=== PATIENT | female | born 1955 | race Two or more races ===

== ENCOUNTER → 2016-06-11 | Outpatient (CLI) | payer OTHER ==
[2013-11-28 18:05] VITALS: BP 124/59
[~2016-06-11] MED LIST: CETI10TA22 PO; HYDR-2666 PO; IBUP200T77 PO; LISI1TAB7 PO; MECL12.52 PO; SIMV40TA3 PO
--- NOTE | 2016-06-11 08:39 | RAD ---
Indication renal and/or ureteral calculi. Right flank pain and hematuria for one week. Axial images were obtained through the abdomen and pelvis. The examination was tailored for the detection of renal and/or ureteral calculi. No IV or gastrointestinal contrast was administered. No prior imaging of the abdomen or pelvis is available. The lung bases are clear. There is a ventral abdominal wall hernia, in the midline, containing only fat measuring approximately 7 cm in greatest dimension and appearing uncomplicated. The liver and spleen appear unremarkable. The gallbladder appears grossly normal. No pancreatic pathology is seen. The adrenal glands appear normal. The kidneys appear unremarkable. There are no renal calculi on either side. There is no hydronephrosis hydroureter or definite calcification seen along the course of either ureter. In the left pelvis, image 191 series 2 there is a calcific density but this is probably outside the ureter. Several calcifications are noted in the pelvis compatible with phleboliths. A mass inflammatory process or acute finding in the abdomen or pelvis is not seen. There are degenerative changes in the lumbar spine likely with an associated component of spinal stenosis. IMPRESSION: No acute finding seen in the abdomen or pelvis. No renal calculi hydronephrosis or definite stone is seen in either ureter. Ventral hernia, containing only fat and appearing uncomplicated Chronic musculoskeletal changes PQRS Compliance Statement: One or more of the following individualized dose reduction techniques were utilized for this examination: 1. Automated exposure control 2. Adjustment of the mA and/or kV according to patient size 3. Use of iterative reconstruction technique
== END | disposition home or self-care (01) ==
LOC: CT 07:27
PROVIDERS: ATTEND Nurse Practitioner
DX: K43.9 Ventral hernia without obstruction or gangrene (principal)
CPT/HCPCS: 74176

== ENCOUNTER → 2016-08-21 | Outpatient (CLI) | payer OTHER ==
[2013-11-28 18:05] VITALS: BP 124/59
--- NOTE | 2016-08-21 14:29 | RAD ---
DATE: 08/21/2016 EXAM: DIGITAL SCREEN BILAT W/CAD HISTORY: Routine screening COMPARISON: 07/05/2015 This study was interpreted with the benefit of Computerized Aided Detection (CAD). FINDINGS: There are scattered fibroglandular densities in the breasts. No new or enlarging breast densities are seen. Benign type calcifications are present. No suspicious microcalcifications have developed. IMPRESSION: Stable mammograms without evidence of malignancy. BI-RADS CATEGORY: 2 BENIGN FINDING(S) RECOMMENDED FOLLOW-UP: 12M 12 MONTH FOLLOW-UP PQRS compliance statement: Patient information was entered into a reminder system with a target due date for the next mammogram. Mammography is a sensitive method for finding small breast cancers, but it does not detect them all and is not a substitute for careful clinical examination. A negative mammogram does not negate a clinically suspicious finding and should not result in delay in biopsying a clinically suspicious abnormality. "Our facility is accredited by the [employer] Mammography [employer]."
== END | disposition home or self-care (01) ==
LOC: MAMMO 13:40
PROVIDERS: ATTEND Family Medicine
DX: Z12.31 Encounter for screening mammogram for malignant neoplasm of breast (principal)
CPT/HCPCS: G0202; 77067

== ENCOUNTER → 2018-06-07 | Outpatient (CLI) | payer OTHER ==
[2013-11-28 18:05] VITALS: BP 124/59
[~2018-06-07] MED LIST changes: -HYDR-2666 PO; +HYDR-2761 PO
[2018-06-07 15:02] LABS: BILIRUBIN,URINE NEGATIVE (NEG); CLARITY,URINE CLEAR; COLOR,URINE YELLOW; NITRITE,URINE NEGATIVE (NEG); PROTEIN,URINE NEGATIVE (NEG-TRACE); UROBILINOGEN,URINE 0.2 mg/dL (0.2 mg/dL)
[2018-06-07 15:35] LABS: BACTERIA,URINE FEW /HPF (0-FEW); SQUAMOUS EPITHELIAL CELL,UR MOD /LPF
[2018-06-07 15:47] LABS: ALBUMIN 3.9 g/dL (3.4-5.0); CALCIUM 9.3 mg/dL (8.5-10.1); CREATININE 0.7 mg/dL (0.6-1.0); GFR 84.5; POTASSIUM 3.6 mmol/L (3.5-5.1); TOTAL BILIRUBIN 0.6 mg/dL (0.2-1.0)
[2018-06-07 15:48] LABS: CHOLESTEROL/HDL RATIO 4.6
[2018-06-08 00:13] LABS: HEMOGLOBIN A1C 6.6 % (4.8-5.6)
== END | disposition home or self-care (01) ==
LOC: LAB 14:13
PROVIDERS: ATTEND Nurse Practitioner
DX: E55.9 Vitamin D deficiency, unspecified (principal); E78.49 Other hyperlipidemia; R30.0 Dysuria; R73.03 Prediabetes
CPT/HCPCS: 36415; 80053; 80061; 81001; 82306; 83036; 84443; 87086

== ENCOUNTER → 2018-06-17 | Outpatient (CLI) | payer OTHER ==
[2013-11-28 18:05] VITALS: BP 124/59
--- NOTE | 2018-06-17 12:06 | RAD ---
DATE: 06/17/2018 EXAM: MAMMO KIERAN SCREENING BILATERAL HISTORY: Routine screening COMPARISON: 08/21/2016 This study was interpreted with the benefit of Computerized Aided Detection (CAD). Breast Density: SCATTERED The breast parenchyma shows scattered fibroglandular densities. Breast parenchyma level B. FINDINGS: 2-D and 3-D tomosynthesis imaging was performed in CC and MLO projections. No new or enlarging breast densities are seen. Scattered benign type calcifications are present. No suspicious microcalcifications have developed. IMPRESSION: Stable mammograms without evidence of malignancy. BI-RADS CATEGORY: 2 BENIGN FINDING(S) RECOMMENDED FOLLOW-UP: 12M 12 MONTH FOLLOW-UP PQRS compliance statement: Patient information was entered into a reminder system with a target due date for the next mammogram. Mammography is a sensitive method for finding small breast cancers, but it does not detect them all and is not a substitute for careful clinical examination. A negative mammogram does not negate a clinically suspicious finding and should not result in delay in biopsying a clinically suspicious abnormality. "Our facility is accredited by the [employer] Mammography Program."
== END | disposition home or self-care (01) ==
LOC: MAMMO 09:51
PROVIDERS: ATTEND Family Medicine
DX: Z12.31 Encounter for screening mammogram for malignant neoplasm of breast (principal)
CPT/HCPCS: 77063; 77067

== ENCOUNTER 2018-10-05 16:14 | Inpatient (IN) | payer OTHER ==
[2018-10-05] VITALS (10 sets, daily range): BP systolic 128–163; BP diastolic 58–84
[~2018-10-05] VITALS: Ht 154.9 cm; Wt 112.0 kg
--- NOTE | 2018-10-05 16:48 | PHYS DOC ---
Past Medical History Past Medical History: Hypertension Alcohol Use: None Adult General Chief Complaint Chief Complaint: HYPERGLYCEMIA HPI HPI Patient is a 63-year-old female who presents to the emergency department for evaluation. She states that she just hasn't felt well for the past several days, she has been having polyuria, as well as generalized fatigue, dizziness, described as a lightheadedness. She does have a history of vertigo in the past, states she has had a few episodes of vertigo over the past few days, but more recently her dizziness has been lightheadedness. She denies any numbness or focal weakness but does feel generally weak. She does not have history of diabetes, but has been told that she is "prediabetic", but she does not take any medication for this. She has not had any fevers or chills, nausea, vomiting, or diarrhea. She denies any headache, new vision changes, chest pain, or shortness of breath. There are no alleviating or exacerbating factors to her symptoms otherwise. The patient states she checked her blood sugar prior to coming to the emergency department and her blood sugar was 350. Blood sugar in the emergency department reads high. Review of Systems Review of Systems Constitutional: Denies fever or chills [] Eyes: Denies change in visual acuity, redness, or eye pain [] HENT: Denies nasal congestion or sore throat [] Respiratory: Denies cough or shortness of breath [] Cardiovascular: The patient denies any shortness of breath, chest pain, palpitations, or orthopnea [] GI: Denies abdominal pain, nausea, vomiting, bloody stools or diarrhea [] : Denies hematuria . Does admit to some mild dysuria.[] Musculoskeletal: Denies back pain or joint pain [] Integument: Denies rash or skin lesions [] Neurologic: Denies headache, focal weakness or sensory changes. Reports generalized weakness.[] Endocrine: Admits to polyuria or polydipsia [] All other systems were reviewed and found to be within normal limits, except as documented in this note. Current Medications Current Medications Current Medications Medications (Trade) Dose Ordered Sig/Swapnil Start Time Stop Time Status Last Admin Dose Admin Dextrose (Dextrose 50%-Water Syringe) 12.5 gm PRN Q15MIN PRN 10/05/18 18:00 Insulin Human Regular 150 ml @ 0 mls/hr 1X ONCE 10/05/18 18:15 10/05/18 18:16 Insulin Human Regular (HumuLIN R VIAL) 5 unit 1X ONCE 10/05/18 17:00 10/05/18 17:01 DC 10/05/18 17:00 5 UNIT Insulin Human Regular 150 unit/ Sodium Chloride 151.5 ml @ 0 mls/hr CONT PRN 10/05/18 18:00 UNV Sodium Chloride 1,000 ml @ 1,000 mls/hr 1X ONCE 10/05/18 17:00 10/05/18 17:59 DC 10/05/18 16:58 1,000 MLS/HR Allergies Allergies Allergies Coded Allergies Type Severity Reaction Last Updated Verified No Known Drug Allergies 11/28/13 No Physical Exam Physical Exam PHYSICAL EXAM: CONSTITUTIONAL: Well developed, well nourished HEAD: normocephalic, atraumatic EENT: PERRL, EOMI. Conjunctivae normal color, sclerae non-icteric; moist mucous membranes. NECK: Supple, non-tender; no meningismus. LUNGS: Lungs CTA, breathing even and unlabored. Normal air movement. HEART: Regular rate and rhythm, no murmur CHEST: No deformity; non-tender ABDOMEN: The abdomen is soft, and non-tender, no masses or bruits. EXTREM: Normal ROM; no deformity, no calf tenderness. Normal pulses palpable in all extremities. There is no pedal edema. SKIN: No rash; no diaphoresis NEURO: Alert; normal speech and cognition; CN's grossly intact; strength grossly intact without focal deficit. Thdrso-vgiu-twkyfh and heel rivero testing is normal. Visual mejia are intact by confrontation. There is generalized psychomotor slowing. BACK: No CVA TTP. Current Patient Data Vital Signs Vital Signs Date Time Temp Pulse Resp B/P (MAP) Pulse Ox O2 Delivery O2 Flow Rate FiO2 10/05/18 16:25 98.4 68 20 141/66 (91) 94 Room Air 98.4 Lab Values Laboratory Tests Test 10/05/18 16:37 White Blood Count 6.0 x10^3/uL (4.0-11.0) Red Blood Count 4.09 x10^6/uL (3.50-5.40) Hemoglobin 12.4 g/dL (12.0-15.5) Hematocrit 37.2 % (36.0-47.0) Mean Corpuscular Volume 91 fL (79-100) Mean Corpuscular Hemoglobin 30 pg (25-35) Mean Corpuscular Hemoglobin Concent 33 g/dL (31-37) Red Cell Distribution Width 13.1 % (11.5-14.5) Platelet Count 170 x10^3/uL (140-400) Neutrophils (%) (Auto) 67 % (31-73) Lymphocytes (%) (Auto) 24 % (24-48) Monocytes (%) (Auto) 7 % (0-9) Eosinophils (%) (Auto) 1 % (0-3) Basophils (%) (Auto) 1 % (0-3) Neutrophils # (Auto) 4.0 x10^3uL (1.8-7.7) Lymphocytes # (Auto) 1.4 x10^3/uL (1.0-4.8) Monocytes # (Auto) 0.4 x10^3/uL (0.0-1.1) Eosinophils # (Auto) 0.1 x10^3/uL (0.0-0.7) Basophils # (Auto) 0.1 x10^3/uL (0.0-0.2) Sodium Level 124 mmol/L (136-145) L Potassium Level 4.7 mmol/L (3.5-5.1) Chloride Level 83 mmol/L (98-107) L Carbon Dioxide Level 19 mmol/L (21-32) L Anion Gap 22 (6-14) H Blood Urea Nitrogen 52 mg/dL (7-20) H Creatinine 1.9 mg/dL (0.6-1.0) H Estimated GFR (Cockcroft-Gault) 26.7 BUN/Creatinine Ratio 27 (6-20) H Glucose Level 1123 mg/dL (70-99) *H Calcium Level 9.5 mg/dL (8.5-10.1) Magnesium Level 3.1 mg/dL (1.8-2.4) H Total Bilirubin 1.0 mg/dL (0.2-1.0) Aspartate Amino Transferase (AST) 53 U/L (15-37) H Alanine Aminotransferase (ALT) 63 U/L (14-59) H Alkaline Phosphatase 69 U/L (46-116) Creatine Kinase 204 U/L (26-192) H RB-Vgm-Y-Type Natriuretic Peptide 102 pg/mL (0-124) Total Protein 7.9 g/dL (6.4-8.2) Albumin 4.2 g/dL (3.4-5.0) Albumin/Globulin Ratio 1.1 (1.0-1.7) Thyroid Stimulating Hormone (TSH) 0.899 uIU/mL (0.358-3.74) Free Thyroxine 1.33 ng/dL (0.76-1.46) Acetone Level Sm pos (NEG) Laboratory Tests 10/05/18 16:37 Laboratory Tests 10/05/18 16:37 EKG EKG Normal sinus rhythm at a rate of 67 beats for minute, left axis deviation, normal intervals. There are no acute ischemic ST/T changes.[] Radiology/Procedures Radiology/Procedures [] Course & Med Decision Making Course & Med Decision Making Pertinent Labs and Imaging studies reviewed. (See chart for details) 6:05 PM:The patient's condition remains stable. I spoke with the hospitalist, who accepted the patient to the hospital for further evaluation and treatment. CRITICAL CARE TIME: [45] Minutes, excluding any procedures and care of other patients. Insulin drip will be started. Pt with features of Hyperosmolar state and possible mild DKA. VBG still currently pending. Dragon Disclaimer Dragon Disclaimer This electronic medical record was generated, in whole or in part, using a voice recognition dictation system. Departure Departure Impression: Primary Impression: Hyperglycemia Additional Impression: Renal insufficiency Disposition: ADMITTED INPATIENT Admitting Physician: MARC Condition: GUARDED Referrals: FLOR BLUNT MD (PCP) Problem Qualifiers STIVEN MINOR MD Oct 05, 2018 16:48
[2018-10-05 16:51] LABS: BASO # 0.1 x10^3/uL (0.0-0.2); BASO % 1 % (0-3); EOS # 0.1 x10^3/uL (0.0-0.7); EOS % 1 % (0-3); HEMATOCRIT 37.2 % (36.0-47.0); HEMOGLOBIN 12.4 g/dL (12.0-15.5); LYMPH # 1.4 x10^3/uL (1.0-4.8); LYMPH % 24 % (24-48); MEAN CORPUSCULAR HEMOGLOBIN 30 pg (25-35); MEAN CORPUSCULAR HGB CONC 33 g/dL (31-37); MEAN CORPUSCULAR VOLUME 91 fL (79-100); MONO # 0.4 x10^3/uL (0.0-1.1); MONO % 7 % (0-9); NEUT % 67 % (31-73); PLATELET COUNT 170 x10^3/uL (140-400); RED BLOOD COUNT 4.09 x10^6/uL (3.50-5.40); RED CELL DISTRIBUTION WIDTH 13.1 % (11.5-14.5)
[2018-10-05] MEDS ORDERED: INSULIN REGULAR 100 UNIT/ML 3ML VIAL. IV ONE (17:00)
[2018-10-05] MEDS ORDERED: IV NORMAL SALINE 1000ML BAG 1,000 ML IV ONE ×3 (17:00→19:00)
[2018-10-05] MEDS ORDERED: IV NORMAL SALINE 1000ML BAG 1,000 ML IV SCH (17:00)
[2018-10-05 17:14] LABS: CALCIUM 9.5 mg/dL (8.5-10.1); CREATININE 1.9 mg/dL (0.6-1.0); GFR 26.7; POTASSIUM 4.7 mmol/L (3.5-5.1)
[2018-10-05 17:17] LABS: ALBUMIN 4.2 g/dL (3.4-5.0); ALBUMIN/GLOBULIN RATIO 1.1 (1.0-1.7); MAGNESIUM 3.1 mg/dL (1.8-2.4); TOTAL PROTEIN 7.9 g/dL (6.4-8.2)
[2018-10-05 17:24] LABS: FREE T4 1.33 ng/dL (0.76-1.46); THYROID STIM HORMONE (TSH) 0.899 uIU/mL (0.358-3.74)
[2018-10-05] MEDS ORDERED: INSULIN REGULAR VIAL 150 UNIT in 0.9 % SODIUM CHLORIDE 150ML 150 ML IV PRN ×2 (18:00→19:00)
[2018-10-05] MEDS ORDERED: DEXTROSE 50% 25 GM / 50ML DISP.SYRIN. IV PRN (18:00)
[2018-10-05] MEDS ORDERED: INSULIN,REGULAR 150 UNIT DRIP 150 ML IV ONE (18:15)
[2018-10-05 18:22] LABS: ISTAT BE VENOUS -7 mmol/L (0-3); ISTAT HCO3 VEN 20 mmol/L (24-28); ISTAT PCO2 VEN 46 mmHg (41-51); ISTAT PH VEN 7.26 (7.32-7.42); ISTAT PO2 VEN 41 mmHg (20-40); ISTAT SAT O2 VEN 68 %; ISTAT TCO2 VEN 22 mmol/L (21-32)
[2018-10-05] MEDS: IV DEXTROSE 5 %-0.45 % NACL 1,000 ML IV SCH ×2 (18:58→22:58)
[2018-10-05] MEDS: IV 1/2 NORMAL SALINE 1,000 ML IV SCH ×2 (18:58→22:58)
[2018-10-05] MEDS: IV NORMAL SALINE 1000ML BAG 1,000 ML IV SCH ×2 (18:58→22:58)
[2018-10-05] MEDS ORDERED: POTASSIUM CHLORIDE 10MEQ 100 ML IV PRN ×3 (19:00)
[2018-10-05] MEDS: quiNINE 324 MG CAPSULE. PO SCH (20:15)
[2018-10-05] MEDS: cefTRIAXone IV Push 1 GM VIAL. IVP SCH (20:17)
[2018-10-05] MEDS: POTASSIUM CHLORIDE 10MEQ 100 ML IV SCH ×2 (21:13→21:14)
--- NOTE | 2018-10-05 22:40 | HP ---
ADMIT DATE: 10/05/2018 CHIEF COMPLAINT: Hyperglycemia. HISTORY OF PRESENT ILLNESS: The patient is a pleasant 63-year-old female who presented to the ER today with hyperglycemia. She has been feeling weak for several days. She has actually lost 30 pounds over the past several weeks. She has been having polyuria and polydipsia and generalized weakness rated at 9/10. While in the ER, we checked labs. She has a glucose greater than 1100. She also has an anion gap metabolic acidosis. We are going to admit the patient to the ICU on an insulin drip and fluids. PAST MEDICAL HISTORY: Hypertension. ALLERGIES: None. FAMILY HISTORY: Diabetes. SOCIAL HISTORY: She does not drink, smoke or take drugs. She works at [employer]. MEDICATIONS: Reviewed. Please refer to the MRAD. REVIEW OF SYSTEMS: GENERAL: She complains of weight loss, polydipsia and polyuria. SKIN: No bruising, hair changes or rashes. EYES: No blurred, double or loss of vision. NOSE AND THROAT: No history of nosebleeds, hoarseness or sore throat. HEART: No history of palpitations, chest pain or shortness of breath on exertion. LUNGS: Denies cough, hemoptysis, wheezing or shortness of breath. GASTROINTESTINAL: Denies changes in appetite, nausea, vomiting, diarrhea or constipation. GENITOURINARY: No history of frequency, urgency, hesitancy or nocturia. NEUROLOGIC: Denies history of numbness, tingling, tremor or weakness. PSYCHIATRIC: No history of panic, anxiety or depression. ENDOCRINE: No history of heat or cold intolerance, polyuria or polydipsia. EXTREMITIES: Denies muscle weakness, joint pain, pain on walking or stiffness. PHYSICAL EXAMINATION: VITAL SIGNS: Temperature afebrile, pulse 98, respirations 18 and blood pressure 141/66. GENERAL: She is alert, cooperative. Her family is present. HEART: Normal S1, S2. LUNGS: Clear. ABDOMEN: Soft. Positive bowel sounds. EXTREMITIES: With 1+ edema. SKIN: No rashes. ENDOCRINE: No thyromegaly. LYMPHATICS: No cervical lymph nodes. HEMATOPOIETIC: No bruising. PSYCHIATRIC: She is stable. LABORATORY DATA: Anion gap is 22. Glucose is 1123. Sodium 124 (I suspect this is pseudohyponatremia secondary to the elevated glucose). Acetone level is positive. ABG shows a pH of 7.26. ASSESSMENT AND PLAN: Diabetic ketoacidosis with metabolic acidosis. The patient is being admitted to the ICU on an insulin drip and IV fluids. DKA protocol. DVT prophylaxis. Home meds. Frequent labs. PROGNOSIS: Guarded. She will need aggressive diabetic education. I did talk to her a little bit about this. JEFFREY FORDE DO DR: JAYME/lev JOB#: [id number] / [id number]
[2018-10-05 23:35] LABS: CALCIUM 8.5 mg/dL (8.5-10.1); CREATININE 1.2 mg/dL (0.6-1.0); GFR 45.4; MAGNESIUM 2.4 mg/dL (1.8-2.4); POTASSIUM 3.5 mmol/L (3.5-5.1)
[2018-10-06] VITALS (15 sets, daily range): BP systolic 106–157; BP diastolic 53–84
[2018-10-06] MEDS ORDERED: DEXTROSE 50% 25 GM / 50ML DISP.SYRIN. IV PRN
--- NOTE | 2018-10-06 00:13 | NUR ---
Gap closed at 0000. Glucose Stabilizer DC'd orders per Dr Damon entered FS ac and hs SS insulin lantus 10 u at hs IVF D5NS at 125cc/hr
[2018-10-06] MEDS: IV DEXTROSE 5% - 0.9 % NACL 1,000 ML IV SCH ×3 (00:21→14:50)
[2018-10-06] MEDS ORDERED: POTASSIUM CHLORIDE 20 MEQ TABLET.ER. PO ONE ×2 (00:30→12:45)
--- NOTE | 2018-10-06 02:52 | EKG ---
[facility] [address] [place] [address] Test Date: 2018-10-05 Test Time: 16:56:44 Pat Name: SHAHRZAD REYNAGA Department: Room: Gender: F Hardware Assembler: : 1955 Requested By: STIVEN MINOR Order Number: [id number] Reading MD: Measurements Intervals Avenue Rate: 67 P: 36 MT: 152 QRS: -11 QRSD: 90 T: 12 QT: 442 QTc: 470 Interpretive Statements SINUS RHYTHM LEFTWARD AXIS NO SPECIFIC ECG ABNORMALITIES RI6.01 Unconfirmed report No previous ECG available for comparison
[2018-10-06] MEDS: quiNINE 324 MG CAPSULE. PO SCH ×3 (06:18→22:00)
[2018-10-06] MEDS: INSULIN LISPRO 300 UNITS/3 ML INSULN.PEN. SQ SCH ×6 (07:39→21:00)
[2018-10-06] MEDS ORDERED: INSULIN LISPRO 300 UNITS/3 ML INSULN.PEN. SQ SCH (08:00)
[2018-10-06] MEDS: ACETAMINOPHEN 325 MG TABLET. PO PRN (08:32)
[2018-10-06] MEDS: LACTOBACILLUS RHAMNOSUS GG 1 CAPSULE. PO SCH ×2 (08:32→21:47)
[2018-10-06] MEDS ORDERED: INSULIN LISPRO 300 UNITS/3 ML INSULN.PEN. SQ ONE ×4 (11:45→22:00)
--- NOTE | 2018-10-06 11:45 | NUR ---
Blood sugar is 419, notified Dr. Mullen, new order for 22 units Novolog total for lunch.
--- NOTE | 2018-10-06 12:47 | PDOC ---
PROGRESS NOTES Chief Complaint Chief Complaint acute Diabetic ketoacidosis Dm2 morbid obesity, BMI 45 acute vasomotor nephropathy, DKA History of Present Illness History of Present Illness transfer out of ICU cont insulin, larger doses needed may benefit from metformin if creatinine continues to improve, Vitals Vitals Vital Signs Date Time Temp Pulse Resp B/P (MAP) Pulse Ox O2 Delivery O2 Flow Rate FiO2 10/06/18 11:00 58 18 135/63 (87) 95 Room Air 10/06/18 08:00 98.7 98.7 Physical Exam General: Alert, Oriented X3, Cooperative, No acute distress Heart: Regular rate, Normal S1 Lungs: Clear Abdomen: No hepatosplenomegaly Extremities: No cyanosis, No edema Skin: No rashes, No significant lesion Labs LABS Laboratory Tests Test 10/05/18 16:37 10/05/18 18:17 10/05/18 20:15 10/05/18 23:15 White Blood Count 6.0 x10^3/uL (4.0-11.0) Red Blood Count 4.09 x10^6/uL (3.50-5.40) Hemoglobin 12.4 g/dL (12.0-15.5) Hematocrit 37.2 % (36.0-47.0) Mean Corpuscular Volume 91 fL (79-100) Mean Corpuscular Hemoglobin 30 pg (25-35) Mean Corpuscular Hemoglobin Concent 33 g/dL (31-37) Red Cell Distribution Width 13.1 % (11.5-14.5) Platelet Count 170 x10^3/uL (140-400) Neutrophils (%) (Auto) 67 % (31-73) Lymphocytes (%) (Auto) 24 % (24-48) Monocytes (%) (Auto) 7 % (0-9) Eosinophils (%) (Auto) 1 % (0-3) Basophils (%) (Auto) 1 % (0-3) Neutrophils # (Auto) 4.0 x10^3uL (1.8-7.7) Lymphocytes # (Auto) 1.4 x10^3/uL (1.0-4.8) Monocytes # (Auto) 0.4 x10^3/uL (0.0-1.1) Eosinophils # (Auto) 0.1 x10^3/uL (0.0-0.7) Basophils # (Auto) 0.1 x10^3/uL (0.0-0.2) Sodium Level 124 mmol/L (136-145) 138 mmol/L (136-145) Potassium Level 4.7 mmol/L (3.5-5.1) 3.5 mmol/L (3.5-5.1) Chloride Level 83 mmol/L (98-107) 103 mmol/L (98-107) Carbon Dioxide Level 19 mmol/L (21-32) 23 mmol/L (21-32) Anion Gap 22 (6-14) 12 (6-14) Blood Urea Nitrogen 52 mg/dL (7-20) 33 mg/dL (7-20) Creatinine 1.9 mg/dL (0.6-1.0) 1.2 mg/dL (0.6-1.0) Estimated GFR (Cockcroft-Gault) 26.7 45.4 BUN/Creatinine Ratio 27 (6-20) Glucose Level 1123 mg/dL (70-99) 541 mg/dL (70-99) 347 mg/dL (70-99) Calcium Level 9.5 mg/dL (8.5-10.1) 8.5 mg/dL (8.5-10.1) Magnesium Level 3.1 mg/dL (1.8-2.4) 2.4 mg/dL (1.8-2.4) Total Bilirubin 1.0 mg/dL (0.2-1.0) Aspartate Amino Transf (AST/SGOT) 53 U/L (15-37) Alanine Aminotransferase (ALT/SGPT) 63 U/L (14-59) Alkaline Phosphatase 69 U/L (46-116) 57 U/L (46-116) Creatine Kinase 204 U/L (26-192) FP-[id number]-Type Natriuretic Peptide 102 pg/mL (0-124) Total Protein 7.9 g/dL (6.4-8.2) Albumin 4.2 g/dL (3.4-5.0) Albumin/Globulin Ratio 1.1 (1.0-1.7) Thyroid Stimulating Hormone (TSH) 0.899 uIU/mL (0.358-3.74) Free Thyroxine 1.33 ng/dL (0.76-1.46) Acetone Level Sm pos (NEG) Bedside Venous pH 7.26 (7.32-7.42) Bedside Venous pCO2 46 mmHg (41-51) Bedside Venous pO2 41 mmHg (20-40) Venous Blood HCO3 20 mmol/L (24-28) POC Venous O2 Saturation (Cristian) 68 % Bedside FiO2 21.0 Test 10/06/18 07:26 10/06/18 11:38 Glucose (Fingerstick) 369 mg/dL (70-99) 419 mg/dL (70-99) Review of Systems Review of Systems weak, lethargic, but better Assessment and Plan Assessmemt and Plan Problems Medical Problems: (1) Hyperglycemia Status: Acute (2) Renal insufficiency Status: Acute Comment Review of Relevant I have reviewed the following items michelle (where applicable) has been applied. Labs Laboratory Tests Test 10/05/18 16:37 10/05/18 18:17 10/05/18 20:15 10/05/18 23:15 White Blood Count 6.0 x10^3/uL (4.0-11.0) Red Blood Count 4.09 x10^6/uL (3.50-5.40) Hemoglobin 12.4 g/dL (12.0-15.5) Hematocrit 37.2 % (36.0-47.0) Mean Corpuscular Volume 91 fL (79-100) Mean Corpuscular Hemoglobin 30 pg (25-35) Mean Corpuscular Hemoglobin Concent 33 g/dL (31-37) Red Cell Distribution Width 13.1 % (11.5-14.5) Platelet Count 170 x10^3/uL (140-400) Neutrophils (%) (Auto) 67 % (31-73) Lymphocytes (%) (Auto) 24 % (24-48) Monocytes (%) (Auto) 7 % (0-9) Eosinophils (%) (Auto) 1 % (0-3) Basophils (%) (Auto) 1 % (0-3) Neutrophils # (Auto) 4.0 x10^3uL (1.8-7.7) Lymphocytes # (Auto) 1.4 x10^3/uL (1.0-4.8) Monocytes # (Auto) 0.4 x10^3/uL (0.0-1.1) Eosinophils # (Auto) 0.1 x10^3/uL (0.0-0.7) Basophils # (Auto) 0.1 x10^3/uL (0.0-0.2) Sodium Level 124 mmol/L (136-145) 138 mmol/L (136-145) Potassium Level 4.7 mmol/L (3.5-5.1) 3.5 mmol/L (3.5-5.1) Chloride Level 83 mmol/L (98-107) 103 mmol/L (98-107) Carbon Dioxide Level 19 mmol/L (21-32) 23 mmol/L (21-32) Anion Gap 22 (6-14) 12 (6-14) Blood Urea Nitrogen 52 mg/dL (7-20) 33 mg/dL (7-20) Creatinine 1.9 mg/dL (0.6-1.0) 1.2 mg/dL (0.6-1.0) Estimated GFR (Cockcroft-Gault) 26.7 45.4 BUN/Creatinine Ratio 27 (6-20) Glucose Level 1123 mg/dL (70-99) 541 mg/dL (70-99) 347 mg/dL (70-99) Calcium Level 9.5 mg/dL (8.5-10.1) 8.5 mg/dL (8.5-10.1) Magnesium Level 3.1 mg/dL (1.8-2.4) 2.4 mg/dL (1.8-2.4) Total Bilirubin 1.0 mg/dL (0.2-1.0) Aspartate Amino Transf (AST/SGOT) 53 U/L (15-37) Alanine Aminotransferase (ALT/SGPT) 63 U/L (14-59) Alkaline Phosphatase 69 U/L (46-116) 57 U/L (46-116) Creatine Kinase 204 U/L (26-192) EB-Tih-Y-Type Natriuretic Peptide 102 pg/mL (0-124) Total Protein 7.9 g/dL (6.4-8.2) Albumin 4.2 g/dL (3.4-5.0) Albumin/Globulin Ratio 1.1 (1.0-1.7) Thyroid Stimulating Hormone (TSH) 0.899 uIU/mL (0.358-3.74) Free Thyroxine 1.33 ng/dL (0.76-1.46) Acetone Level Sm pos (NEG) Bedside Venous pH 7.26 (7.32-7.42) Bedside Venous pCO2 46 mmHg (41-51) Bedside Venous pO2 41 mmHg (20-40) Venous Blood HCO3 20 mmol/L (24-28) POC Venous O2 Saturation (Cristian) 68 % Bedside FiO2 21.0 Test 10/06/18 07:26 10/06/18 11:38 Glucose (Fingerstick) 369 mg/dL (70-99) 419 mg/dL (70-99) Laboratory Tests Test 10/05/18 16:37 10/05/18 18:17 10/05/18 20:15 10/05/18 23:15 White Blood Count 6.0 x10^3/uL (4.0-11.0) Red Blood Count 4.09 x10^6/uL (3.50-5.40) Hemoglobin 12.4 g/dL (12.0-15.5) Hematocrit 37.2 % (36.0-47.0) Mean Corpuscular Volume 91 fL (79-100) Mean Corpuscular Hemoglobin 30 pg (25-35) Mean Corpuscular Hemoglobin Concent 33 g/dL (31-37) Red Cell Distribution Width 13.1 % (11.5-14.5) Platelet Count 170 x10^3/uL (140-400) Neutrophils (%) (Auto) 67 % (31-73) Lymphocytes (%) (Auto) 24 % (24-48) Monocytes (%) (Auto) 7 % (0-9) Eosinophils (%) (Auto) 1 % (0-3) Basophils (%) (Auto) 1 % (0-3) Neutrophils # (Auto) 4.0 x10^3uL (1.8-7.7) Lymphocytes # (Auto) 1.4 x10^3/uL (1.0-4.8) Monocytes # (Auto) 0.4 x10^3/uL (0.0-1.1) Eosinophils # (Auto) 0.1 x10^3/uL (0.0-0.7) Basophils # (Auto) 0.1 x10^3/uL (0.0-0.2) Sodium Level 124 mmol/L (136-145) 138 mmol/L (136-145) Potassium Level 4.7 mmol/L (3.5-5.1) 3.5 mmol/L (3.5-5.1) Chloride Level 83 mmol/L (98-107) 103 mmol/L (98-107) Carbon Dioxide Level 19 mmol/L (21-32) 23 mmol/L (21-32) Anion Gap 22 (6-14) 12 (6-14) Blood Urea Nitrogen 52 mg/dL (7-20) 33 mg/dL (7-20) Creatinine 1.9 mg/dL (0.6-1.0) 1.2 mg/dL (0.6-1.0) Estimated GFR (Cockcroft-Gault) 26.7 45.4 BUN/Creatinine Ratio 27 (6-20) Glucose Level 1123 mg/dL (70-99) 541 mg/dL (70-99) 347 mg/dL (70-99) Calcium Level 9.5 mg/dL (8.5-10.1) 8.5 mg/dL (8.5-10.1) Magnesium Level 3.1 mg/dL (1.8-2.4) 2.4 mg/dL (1.8-2.4) Total Bilirubin 1.0 mg/dL (0.2-1.0) Aspartate Amino Transf (AST/SGOT) 53 U/L (15-37) Alanine Aminotransferase (ALT/SGPT) 63 U/L (14-59) Alkaline Phosphatase 69 U/L (46-116) 57 U/L (46-116) Creatine Kinase 204 U/L (26-192) OH-Thl-J-Type Natriuretic Peptide 102 pg/mL (0-124) Total Protein 7.9 g/dL (6.4-8.2) Albumin 4.2 g/dL (3.4-5.0) Albumin/Globulin Ratio 1.1 (1.0-1.7) Thyroid Stimulating Hormone (TSH) 0.899 uIU/mL (0.358-3.74) Free Thyroxine 1.33 ng/dL (0.76-1.46) Acetone Level Sm pos (NEG) Bedside Venous pH 7.26 (7.32-7.42) Bedside Venous pCO2 46 mmHg (41-51) Bedside Venous pO2 41 mmHg (20-40) Venous Blood HCO3 20 mmol/L (24-28) POC Venous O2 Saturation (Cristian) 68 % Bedside FiO2 21.0 Test 10/06/18 07:26 10/06/18 11:38 Glucose (Fingerstick) 369 mg/dL (70-99) 419 mg/dL (70-99) Medications Current Medications Sodium Chloride 1,000 ml @ 1,000 mls/hr Q1H IV Last administered on 10/05/18at 16:58; Start 10/05/18 at 17:00; Stop 10/05/18 at 17:59; Status DC Sodium Chloride 1,000 ml @ 1,000 mls/hr 1X ONCE IV Last administered on 10/05/18at 16:58; Start 10/05/18 at 17:00; Stop 10/05/18 at 17:59; Status DC Insulin Human Regular (HumuLIN R VIAL) 5 unit 1X ONCE IV Last administered on 10/05/18at 17:00; Start 10/05/18 at 17:00; Stop 10/05/18 at 17:01; Status DC Insulin Human Regular 150 unit/ Sodium Chloride 151.5 ml @ 0 mls/hr CONT PRN IV SEE I/O RECORD; Start 10/05/18 at 18:00; Status UNV Dextrose (Dextrose 50%-Water Syringe) 12.5 gm PRN Q15MIN PRN IV LOW BLOOD SUGAR; Start 10/05/18 at 18:00; Stop 10/06/18 at 00:06; Status DC Insulin Human Regular 150 ml @ 0 mls/hr 1X ONCE IV Last administered on 10/05/18at 18:32; Start 10/05/18 at 18:15; Stop 10/05/18 at 18:16; Status DC Sodium Chloride 1,000 ml @ 175 mls/hr 1X ONCE IV ; Start 10/05/18 at 18:15; Stop 10/05/18 at 23:57; Status DC Sodium Chloride 1,000 ml @ 250 mls/hr 1X ONCE IV Last administered on 10/05/18at 18:47; Start 10/05/18 at 19:00; Stop 10/05/18 at 22:59; Status DC Sodium Chloride 1,000 ml @ 250 mls/hr Q4H IV Last administered on 10/05/18at 22:58; Start 10/05/18 at 18:58; Stop 10/06/18 at 00:06; Status DC Sodium Chloride 1,000 ml @ 250 mls/hr Q4H IV ; Start 10/05/18 at 18:58; Stop 10/06/18 at 00:06; Status DC Dextrose/Sodium Chloride 1,000 ml @ 250 mls/hr Q4H IV ; Start 10/05/18 at 18:58; Stop 10/06/18 at 00:06; Status DC Insulin Human Regular 150 unit/ Sodium Chloride 151.5 ml @ 0 mls/hr CONT PRN PRN IV PER PROTOCOL; Start 10/05/18 at 19:00; Stop 10/06/18 at 00:06; Status DC Potassium Chloride/Water 100 ml @ 100 mls/hr PRN Q1HR PRN IV SEE COMMENTS Last administered on 10/05/18at 20:21; Start 10/05/18 at 19:00; Stop 10/06/18 at 00:06; Status DC Potassium Chloride/Water 100 ml @ 100 mls/hr PRN Q1HR PRN IV SEE COMMENTS; Start 10/05/18 at 19:00; Stop 10/06/18 at 00:06; Status DC Potassium Chloride/Water 100 ml @ 100 mls/hr PRN Q1HR PRN IV SEE COMMENTS; Start 10/05/18 at 19:00; Stop 10/06/18 at 00:06; Status DC Quinine Sulfate (Qualaquin) 324 mg Q8HRS PO Last administered on 10/06/18at 06:18; Start 10/05/18 at 22:00 Ceftriaxone Sodium (Rocephin) 1 gm Q24H IVP Last administered on 10/05/18at 20:17; Start 10/05/18 at 20:00 Potassium Chloride/Water 100 ml @ 100 mls/hr Q1H IV Last administered on 10/05/18at 21:14; Start 10/05/18 at 20:00; Stop 10/05/18 at 21:59; Status DC Insulin Glargine (Lantus) 10 units QHS SQ Last administered on 10/06/18at 00:23; Start 10/06/18 at 00:00; Stop 10/06/18 at 11:41; Status DC Insulin Human Lispro (HumaLOG) 0-5 UNITS QIDACHS SQ Last administered on 10/06/18at 07:39; Start 10/06/18 at 07:30 Dextrose (Dextrose 50%-Water Syringe) 12.5 gm PRN Q15MIN PRN IV SEE COMMENTS; Start 10/06/18 at 00:00 Insulin Human Lispro (HumaLOG) 10 units TIDWMEALS SQ Last administered on 10/06/18at 07:40; Start 10/06/18 at 08:00; Stop 10/06/18 at 11:41; Status DC Dextrose/Sodium Chloride 1,000 ml @ 125 mls/hr Q8H IV Last administered on 10/06/18at 07:42; Start 10/06/18 at 00:00 Potassium Chloride (Klor-Con) 40 meq 1X ONCE PO Last administered on 10/06/18at 00:24; Start 10/06/18 at 00:30; Stop 10/06/18 at 00:31; Status DC Lactobacillus Rhamnosus (Culturelle) 1 cap BID PO Last administered on 10/06/18at 08:32; Start 10/06/18 at 09:00 Acetaminophen (Tylenol) 650 mg PRN Q6HRS PRN PO PAIN Last administered on 10/06/18at 08:32; Start 10/06/18 at 08:30 Insulin Glargine (Lantus) 28 units QHS SQ ; Start 10/06/18 at 21:00 Insulin Human Lispro (HumaLOG) 17 units TIDWMEALS SQ ; Start 10/06/18 at 12:00 Insulin Human Lispro (HumaLOG) 22 units 1X ONCE SQ Last administered on 9at 11:53; Start 10/06/18 at 11:45; Stop 10/06/18 at 11:46; Status DC Active Scripts Active Reported Lisinopril-Hctz 20-25 Mg Tab (Lisinopril/Hydrochlorothiazide) 1 Each Tablet 1 Tab PO DAILY Vitals/I & O Vital Sign - Last 24 Hours 10/05/18 10/05/18 10/05/18 10/05/18 16:25 16:59 17:29 17:59 Temp 98.4 98.4 Pulse 68 66 66 64 Resp 20 22 33 30 B/P (MAP) 141/66 (91) 159/78 (105) 163/83 (109) 165/64 (97) Pulse Ox 94 93 95 96 O2 Delivery Room Air Room Air Room Air Room Air 10/05/18 10/05/18 10/05/18 10/05/18 18:29 19:00 19:15 19:30 Temp 98.2 98.2 Pulse 59 58 60 63 Resp 12 16 14 B/P (MAP) 174/83 (113) 132/65 (87) 138/70 (92) 140/68 (92) O2 Delivery Room Air Room Air Room Air 10/05/18 10/05/18 10/05/18 10/05/18 19:30 19:45 20:00 20:30 Pulse 62 72 70 Resp 14 12 16 B/P (MAP) 142/77 (98) 145/70 (95) 163/84 (110) Pulse Ox 99 98 100 O2 Delivery Room Air Room Air Room Air Room Air 10/05/18 10/05/18 10/05/18 10/05/18 21:00 22:00 23:00 23:59 Pulse 74 70 66 Resp 12 16 18 B/P (MAP) 128/78 (95) 137/66 (89) 128/58 (81) Pulse Ox 99 100 98 O2 Delivery Room Air Room Air Room Air Room Air 10/05/18 10/06/18 10/06/18 10/06/18 23:59 01:00 02:00 03:00 Temp 99.1 99.1 Pulse 88 68 68 57 Resp 18 20 18 16 B/P (MAP) 145/60 (88) 121/61 (81) 118/58 (78) 124/55 (78) Pulse Ox 98 100 100 98 O2 Delivery Room Air Room Air Room Air Room Air 10/06/18 10/06/18 10/06/18 10/06/18 04:00 04:00 05:00 06:00 Temp 98.6 98.6 Pulse 58 56 59 Resp 16 18 18 B/P (MAP) 106/53 (70) 140/55 (83) 133/67 (89) Pulse Ox 98 99 99 O2 Delivery Room Air Room Air Room Air Room Air 10/06/18 10/06/18 10/06/18 10/06/18 07:00 08:00 08:00 09:00 Temp 98.7 98.7 Pulse 56 56 58 Resp 18 18 18 B/P (MAP) 136/70 (92) 127/69 (88) 136/79 (98) Pulse Ox 96 96 95 O2 Delivery Room Air Room Air Room Air Room Air 10/06/18 10/06/18 10:00 11:00 Pulse 62 58 Resp 18 18 B/P (MAP) 153/84 (107) 135/63 (87) Pulse Ox 96 95 O2 Delivery Room Air Room Air Intake and Output 10/05/18 10/05/18 10/06/18 15:00 23:00 07:00 Intake Total 2300 ml 3320 ml Output Total 1500 ml 600 ml Balance 800 ml 2720 ml SAMINA VASQUEZ MD Oct 06, 2018 12:47
--- NOTE | 2018-10-06 15:21 | NUR ---
SS following for discharge planning. SS reviewed pt chart. Pt is from home and is currently on room air. No discharge needs noted at this time. SS will continue to follow for discharge planning.
--- NOTE | 2018-10-06 16:28 | NUR ---
Notified Dr. Mullen of blood sugar of 382, new order to give total of 30 units Novolog before dinner.
[2018-10-06] MEDS ORDERED: INSULIN GLARGINE 300 UNITS/3 ML INSULN.PEN. SQ SCH ×2 (21:00)
[2018-10-06] MEDS: cefTRIAXone IV Push 1 GM VIAL. IVP SCH (21:49)
[2018-10-07 03:00] VITALS: BP 132/52
[2018-10-07] MEDS: quiNINE 324 MG CAPSULE. PO SCH ×2 (06:00→14:05)
[2018-10-07 06:21] VITALS: BP 138/44
[2018-10-07] MEDS ORDERED: DEXTROSE 50% 25 GM / 50ML DISP.SYRIN. IV PRN (08:30)
[2018-10-07] MEDS: LISINOPRIL 20 MG TABLET PO SCH (08:57)
[2018-10-07] MEDS: LACTOBACILLUS RHAMNOSUS GG 1 CAPSULE. PO SCH ×2 (08:57→22:22)
[2018-10-07] MEDS: hydroCHLOROthiazide 25 MG TABLET PO SCH (08:58)
[2018-10-07] MEDS: INSULIN LISPRO 300 UNITS/3 ML INSULN.PEN. SQ SCH ×6 (09:05→17:48)
[2018-10-07 11:00] VITALS: BP 128/57
--- NOTE | 2018-10-07 11:37 | PDOC ---
PROGRESS NOTES Chief Complaint Chief Complaint s/ post [facility] with no coma polyuria, polydipsia- new Dm2 - new Dx morbid obesity, BMI 45 acute vasomotor nephropathy, from [facility] History of Present Illness History of Present Illness transfer out of ICU New dx of diabetes On hefty doses insulin and I still need to increase because blood sugars are 300s She came with a blood sugar 500s Plan: increase NovoLog from 17 to 20units 3 times a day Increase long-acting from 25 units to -35units daily at bedtime Check A1c Not ready to DC yet, wait for tomorrow On Rocephin but no urine sample Check a UA cont insulin, larger doses needed may benefit from metformin if creatinine continues to improve, - 1.2 today DM education Vitals Vitals Vital Signs Date Time Temp Pulse Resp B/P (MAP) Pulse Ox O2 Delivery O2 Flow Rate FiO2 10/07/18 11:00 98.0 74 16 128/57 (80) 96 Room Air 98.0 Physical Exam General: Alert, Oriented X3, Cooperative, No acute distress Heart: Regular rate, Normal S1 Lungs: Clear Abdomen: No hepatosplenomegaly Extremities: No cyanosis, No edema Skin: No rashes, No significant lesion Labs LABS Laboratory Tests Test 10/06/18 11:38 10/06/18 16:12 10/06/18 20:36 10/07/18 07:39 Glucose (Fingerstick) 419 mg/dL (70-99) 382 mg/dL (70-99) 385 mg/dL (70-99) 211 mg/dL (70-99) Review of Systems Review of Systems A 14 point ROS was completed with the following noted as positive: Other systems reviewed and negative. \CONSTITUTIONAL: No fever or chills EYES: No recent changes SKIN: No rash or itching CARDIOVASCULAR: No chest pain, syncope, palpitations, or edema RESPIRATORY: No SOB or cough GASTROINTESTINAL: No nausea, vomiting or abdominal pain NEUROLOGICAL: No headaches or weakness ENDOCRINE: No cold or heat intolerance GENITOURINARY: No urgency or frequency of urination MUSCULOSKELETAL: No back pain or joint pain LYMPHATICS: No enlarged lymph nodes PSYCHIATRIC: No anxiety or depression Assessment and Plan Assessmemt and Plan Problems Medical Problems: (1) Hyperglycemia Status: Acute (2) Renal insufficiency Status: Acute Comment Review of Relevant I have reviewed the following items michelle (where applicable) has been applied. Labs Laboratory Tests Test 10/05/18 16:37 10/05/18 18:17 10/05/18 19:00 10/05/18 20:15 White Blood Count 6.0 x10^3/uL (4.0-11.0) Red Blood Count 4.09 x10^6/uL (3.50-5.40) Hemoglobin 12.4 g/dL (12.0-15.5) Hematocrit 37.2 % (36.0-47.0) Mean Corpuscular Volume 91 fL (79-100) Mean Corpuscular Hemoglobin 30 pg (25-35) Mean Corpuscular Hemoglobin Concent 33 g/dL (31-37) Red Cell Distribution Width 13.1 % (11.5-14.5) Platelet Count 170 x10^3/uL (140-400) Neutrophils (%) (Auto) 67 % (31-73) Lymphocytes (%) (Auto) 24 % (24-48) Monocytes (%) (Auto) 7 % (0-9) Eosinophils (%) (Auto) 1 % (0-3) Basophils (%) (Auto) 1 % (0-3) Neutrophils # (Auto) 4.0 x10^3uL (1.8-7.7) Lymphocytes # (Auto) 1.4 x10^3/uL (1.0-4.8) Monocytes # (Auto) 0.4 x10^3/uL (0.0-1.1) Eosinophils # (Auto) 0.1 x10^3/uL (0.0-0.7) Basophils # (Auto) 0.1 x10^3/uL (0.0-0.2) Sodium Level 124 mmol/L (136-145) Potassium Level 4.7 mmol/L (3.5-5.1) Chloride Level 83 mmol/L (98-107) Carbon Dioxide Level 19 mmol/L (21-32) Anion Gap 22 (6-14) Blood Urea Nitrogen 52 mg/dL (7-20) Creatinine 1.9 mg/dL (0.6-1.0) Estimated GFR (Cockcroft-Gault) 26.7 BUN/Creatinine Ratio 27 (6-20) Glucose Level 1123 mg/dL (70-99) 541 mg/dL (70-99) Calcium Level 9.5 mg/dL (8.5-10.1) Magnesium Level 3.1 mg/dL (1.8-2.4) Total Bilirubin 1.0 mg/dL (0.2-1.0) Aspartate Amino Transf (AST/SGOT) 53 U/L (15-37) Alanine Aminotransferase (ALT/SGPT) 63 U/L (14-59) Alkaline Phosphatase 69 U/L (46-116) Creatine Kinase 204 U/L (26-192) MT-Tqc-H-Type Natriuretic Peptide 102 pg/mL (0-124) Total Protein 7.9 g/dL (6.4-8.2) Albumin 4.2 g/dL (3.4-5.0) Albumin/Globulin Ratio 1.1 (1.0-1.7) Thyroid Stimulating Hormone (TSH) 0.899 uIU/mL (0.358-3.74) Free Thyroxine 1.33 ng/dL (0.76-1.46) Acetone Level Sm pos (NEG) Bedside Venous pH 7.26 (7.32-7.42) Bedside Venous pCO2 46 mmHg (41-51) Bedside Venous pO2 41 mmHg (20-40) Venous Blood HCO3 20 mmol/L (24-28) POC Venous O2 Saturation (Cristian) 68 % Bedside FiO2 21.0 Nasal Screen MRSA (PCR) Negative (Negative) Test 10/05/18 23:15 10/06/18 07:26 10/06/18 11:38 10/06/18 16:12 Sodium Level 138 mmol/L (136-145) Potassium Level 3.5 mmol/L (3.5-5.1) Chloride Level 103 mmol/L (98-107) Carbon Dioxide Level 23 mmol/L (21-32) Anion Gap 12 (6-14) Blood Urea Nitrogen 33 mg/dL (7-20) Creatinine 1.2 mg/dL (0.6-1.0) Estimated GFR (Cockcroft-Gault) 45.4 Glucose Level 347 mg/dL (70-99) Calcium Level 8.5 mg/dL (8.5-10.1) Magnesium Level 2.4 mg/dL (1.8-2.4) Alkaline Phosphatase 57 U/L (46-116) Glucose (Fingerstick) 369 mg/dL (70-99) 419 mg/dL (70-99) 382 mg/dL (70-99) Test 10/06/18 20:36 10/07/18 07:39 Glucose (Fingerstick) 385 mg/dL (70-99) 211 mg/dL (70-99) Laboratory Tests Test 10/06/18 11:38 10/06/18 16:12 10/06/18 20:36 10/07/18 07:39 Glucose (Fingerstick) 419 mg/dL (70-99) 382 mg/dL (70-99) 385 mg/dL (70-99) 211 mg/dL (70-99) Medications Current Medications Sodium Chloride 1,000 ml @ 1,000 mls/hr Q1H IV Last administered on 10/05/18at 16:58; Start 10/05/18 at 17:00; Stop 10/05/18 at 17:59; Status DC Sodium Chloride 1,000 ml @ 1,000 mls/hr 1X ONCE IV Last administered on 10/05/18at 16:58; Start 10/05/18 at 17:00; Stop 10/05/18 at 17:59; Status DC Insulin Human Regular (HumuLIN R VIAL) 5 unit 1X ONCE IV Last administered on 10/05/18at 17:00; Start 10/05/18 at 17:00; Stop 10/05/18 at 17:01; Status DC Insulin Human Regular 150 unit/ Sodium Chloride 151.5 ml @ 0 mls/hr CONT PRN IV SEE I/O RECORD; Start 10/05/18 at 18:00; Status UNV Dextrose (Dextrose 50%-Water Syringe) 12.5 gm PRN Q15MIN PRN IV LOW BLOOD SUGAR; Start 10/05/18 at 18:00; Stop 10/06/18 at 00:06; Status DC Insulin Human Regular 150 ml @ 0 mls/hr 1X ONCE IV Last administered on 10/05/18at 18:32; Start 10/05/18 at 18:15; Stop 10/05/18 at 18:16; Status DC Sodium Chloride 1,000 ml @ 175 mls/hr 1X ONCE IV ; Start 10/05/18 at 18:15; St op 10/05/18 at 23:57; Status DC Sodium Chloride 1,000 ml @ 250 mls/hr 1X ONCE IV Last administered on 10/05/18at 18:47; Start 10/05/18 at 19:00; Stop 10/05/18 at 22:59; Status DC Sodium Chloride 1,000 ml @ 250 mls/hr Q4H IV Last administered on 10/05/18at 2 2:58; Start 10/05/18 at 18:58; Stop 10/06/18 at 00:06; Status DC Sodium Chloride 1,000 ml @ 250 mls/hr Q4H IV ; Start 10/05/18 at 18:58; Stop 10/06/18 at 00:06; Status DC Dextrose/Sodium Chloride 1,000 ml @ 250 mls/hr Q4H IV ; Start 10/05/18 at 18:58; Stop 10/06/18 at 00:06; Status DC Insulin Human Regular 150 unit/ Sodium Chloride 151.5 ml @ 0 mls/hr CONT PRN PRN IV PER PROTOCOL; Start 10/05/18 at 19:00; Stop 10/06/18 at 00:06; Status DC Potassium Chloride/Water 100 ml @ 100 mls/hr PRN Q1HR PRN IV SEE COMMENTS Last administered on 10/05/18at 20:21; Start 10/05/18 at 19:00; Stop 10/06/18 at 00:06; Status DC Potassium Chloride/Water 100 ml @ 100 mls/hr PRN Q1HR PRN IV SEE COMMENTS; Start 10/05/18 at 19:00; Stop 10/06/18 at 00:06; Status DC Potassium Chloride/Water 100 ml @ 100 mls/hr PRN Q1HR PRN IV SEE COMMENTS; Start 10/05/18 at 19:00; Stop 10/06/18 at 00:06; Status DC Quinine Sulfate (Qualaquin) 324 mg Q8HRS PO Last administered on 10/06/18at 13:25; Start 10/05/18 at 22:00 Ceftriaxone Sodium (Rocephin) 1 gm Q24H IVP Last administered on 10/06/18at 21:49; Start 10/05/18 at 20:00 Potassium Chloride/Water 100 ml @ 100 mls/hr Q1H IV Last administered on 10/05/18at 21:14; Start 10/05/18 at 20:00; Stop 10/05/18 at 21:59; Status DC Insulin Glargine (Lantus) 10 units QHS SQ Last administered on 10/06/18at 00:23; Start 10/06/18 at 00:00; Stop 10/06/18 at 11:41; Status DC Insulin Human Lispro (HumaLOG) 0-5 UNITS QIDACHS SQ Last administered on 10/06/18at 07:39; Start 10/06/18 at 07:30; Stop 10/07/18 at 08:27; Status DC Dextrose (Dextrose 50%-Water Syringe) 12.5 gm PRN Q15MIN PRN IV SEE COMMENTS; Start 10/06/18 at 00:00; Stop 10/07/18 at 08:29; Status DC Insulin Human Lispro (HumaLOG) 10 units TIDWMEALS SQ Last administered on 10/06/18at 07:40; Start 10/06/18 at 08:00; Stop 10/06/18 at 11:41; Status DC Dextrose/Sodium Chloride 1,000 ml @ 125 mls/hr Q8H IV Last administered on 10/06/18at 14:50; Start 10/06/18 at 00:00; Stop 10/06/18 at 16:55; Status DC Potassium Chloride (Klor-Con) 40 meq 1X ONCE PO Last administered on 10/06/18at 00:24; Start 10/06/18 at 00:30; Stop 10/06/18 at 00:31; Status DC Lactobacillus Rhamnosus (Culturelle) 1 cap BID PO Last administered on 10/07/18at 08:57; Start 10/06/18 at 09:00 Acetaminophen (Tylenol) 650 mg PRN Q6HRS PRN PO PAIN Last administered on 10/06/18at 08:32; Start 10/06/18 at 08:30 Insulin Glargine (Lantus) 28 units QHS SQ Last administered on 10/06/18at 22:04; Start 10/06/18 at 21:00; Stop 10/07/18 at 08:27; Status DC Insulin Human Lispro (HumaLOG) 17 units TIDWMEALS SQ ; Start 10/06/18 at 12:00; Stop 10/07/18 at 08:27; Status DC Insulin Human Lispro (HumaLOG) 22 units 1X ONCE SQ Last administered on 10/06/18at 11:53; Start 10/06/18 at 11:45; Stop 10/06/18 at 11:46; Status DC Potassium Chloride (Klor-Con) 40 meq 1X ONCE PO Last administered on 10/06/18at 12:50; Start 10/06/18 at 12:45; Stop 10/06/18 at 12:46; Status DC Insulin Human Lispro (HumaLOG) 10 units 1X ONCE SQ ; Start 10/06/18 at 16:30; Stop 10/06/18 at 16:31; Status Cancel Insulin Human Lispro (HumaLOG) 30 units 1X ONCE SQ Last administered on 10/06/18at 17:01; Start 10/06/18 at 16:30; Stop 10/06/18 at 16:35; Status DC Insulin Human Lispro (HumaLOG) 30 units 1X ONCE SQ Last administered on 10/06/18at 22:05; Start 10/06/18 at 22:00; Stop 10/06/18 at 22:01; Status DC Insulin Glargine (Lantus) 35 units QHS SQ ; Start 10/07/18 at 21:00 Insulin Human Lispro (HumaLOG) 20 units TIDWMEALS SQ Last administered on 10/07/18at 09:06; Start 10/07/18 at 09:00 Insulin Human Lispro (HumaLOG) 0-9 UNITS TIDWMEALS SQ Last administered on 10/07/18at 09:05; Start 10/07/18 at 09:00 Dextrose (Dextrose 50%-Water Syringe) 12.5 gm PRN Q15MIN PRN IV SEE COMMENTS; Start 10/07/18 at 08:30 Lisinopril (Prinivil) 20 mg DAILY PO Last administered on 10/07/18at 08:57; Start 10/07/18 at 09:00 Hydrochlorothiazide (Hydrodiuril) 25 mg DAILY PO Last administered on 10/07/18at 08:58; Start 10/07/18 at 09:00 Active Scripts Active Reported Lisinopril-Hctz 20-25 Mg Tab (Lisinopril/Hydrochlorothiazide) 1 Each Tablet 1 Tab PO DAILY Vitals/I & O Vital Sign - Last 24 Hours 6/6/19 6/6/19 6/6/19 6/6/19 12:00 12:00 13:00 19:00 Temp 97.8 97.8 Pulse 58 68 63 Resp 18 18 18 B/P (MAP) 137/65 (89) 148/66 (93) 157/63 (94) Pulse Ox 96 96 95 O2 Delivery Room Air Room Air Room Air Room Air 10/06/18 10/07/18 10/07/18 10/07/18 22:40 03:00 06:21 08:57 Temp 98.4 98.1 98.2 98.4 98.1 98.2 Pulse 63 72 73 73 Resp 18 17 18 B/P (MAP) 151/54 (86) 132/52 (78) 138/44 (75) 138/44 Pulse Ox 95 96 99 O2 Delivery Room Air Room Air Room Air 10/07/18 11:00 Temp 98.0 98.0 Pulse 74 Resp 16 B/P (MAP) 128/57 (80) Pulse Ox 96 O2 Delivery Room Air Intake and Output 10/06/18 10/06/18 10/07/18 14:59 22:59 06:59 Intake Total 600 ml 480.2 ml 600 ml Output Total 350 ml Balance 250 ml 480.2 ml 600 ml Nutrition Consultation Dietary Evaluation: Recommendations by RD: Dietary education by RD Comments: Continue w/ADA diet as ordered Provided diabetes diet education, RD available [phone] as additional questions arise REC glucerna (chocolate) w/dinner Expected Outcomes/Goals: PO intake to meet >75% est needs All diet education questions to be answered as able prior to discharge Interpretation of weight loss: >5% in 1 month Malnutrition Findings: Food and Nutrition Intake (Mod: <75% est energy req 7days Malnutrition related to morbid: Weight 200% of ideal wt Weight Status: Morbidly Obese LUIS ANTONIO MAHARAJ MD Oct 07, 2018 11:37
[2018-10-07 11:44] LABS: BILIRUBIN,URINE NEGATIVE (NEG); CLARITY,URINE CLEAR; COLOR,URINE YELLOW; NITRITE,URINE NEGATIVE (NEG); PH,URINE 5.5; PROTEIN,URINE NEGATIVE (NEG-TRACE); UROBILINOGEN,URINE 0.2 mg/dL (0.2 mg/dL)
[2018-10-07 11:50] LABS: BACTERIA,URINE 0 /HPF (0-FEW); RBC,URINE RARE /HPF (0-2); SQUAMOUS EPITHELIAL CELL,UR FEW /LPF
[2018-10-07 15:00] VITALS: BP 118/56
[2018-10-07] MEDS: ACETAMINOPHEN 325 MG TABLET. PO PRN (17:40)
[2018-10-07 19:00] VITALS: BP 126/62
[2018-10-07] MEDS ORDERED: INSULIN GLARGINE 300 UNITS/3 ML INSULN.PEN. SQ SCH (21:00)
[2018-10-07] MEDS: cefTRIAXone IV Push 1 GM VIAL. IVP SCH (22:11)
[2018-10-07 23:00] VITALS: BP 141/74
[2018-10-08 03:00] VITALS: BP 143/57
[2018-10-08] MEDS: quiNINE 324 MG CAPSULE. PO SCH ×3 (03:02→15:29)
--- NOTE | 2018-10-08 04:39 | NUR ---
Patient did not want her quinine until her legs cramped, so 2200 dose held, and given approx 0300, when asked.
[2018-10-08 07:00] VITALS: BP 149/65
[2018-10-08] MEDS: hydroCHLOROthiazide 25 MG TABLET PO SCH (08:22)
[2018-10-08] MEDS: LACTOBACILLUS RHAMNOSUS GG 1 CAPSULE. PO SCH (08:22)
[2018-10-08] MEDS: LISINOPRIL 20 MG TABLET PO SCH (08:23)
[2018-10-08] MEDS: INSULIN LISPRO 300 UNITS/3 ML INSULN.PEN. SQ SCH ×6 (08:36→17:04)
[2018-10-08] MEDS ORDERED: LISI1TAB7 PO (08:44)
[2018-10-08] MEDS ORDERED: INSU100I11 SQ (08:44)
[2018-10-08] MEDS ORDERED: INSU100I13 SQ ×2 (08:44→15:10)
[2018-10-08 11:00] VITALS: BP 151/71
--- NOTE | 2018-10-08 11:20 | PDOC3 ---
Discharge Summary Visit Information Date of Admission: Oct 05, 2018 Date of Discharge: Oct 08, 2018 Admitting Diagnosis Comment: s/ post [facility] with no coma polyuria, polydipsia- new Dm2 - new Dx morbid obesity, BMI 45 acute vasomotor nephropathy, from [facility] Final Diagnosis Problems Medical Problems: (1) Hyperglycemia Status: Acute (2) Renal insufficiency Status: Acute Brief Hospital Course Allergies Allergies Coded Allergies Type Severity Reaction Last Updated Verified No Known Drug Allergies 11/28/13 No Vital Signs Vital Signs Date Time Temp Pulse Resp B/P (MAP) Pulse Ox O2 Delivery O2 Flow Rate FiO2 10/08/18 08:23 60 149/65 10/08/18 07:00 98.1 18 99 Room Air 98.1 Lab Results Laboratory Tests Test 10/06/18 11:38 10/06/18 16:12 10/06/18 20:36 10/07/18 07:39 Glucose (Fingerstick) 419 mg/dL (70-99) 382 mg/dL (70-99) 385 mg/dL (70-99) 211 mg/dL (70-99) Test 10/07/18 09:05 10/07/18 11:37 10/07/18 16:13 10/07/18 19:32 Urine Collection Type Unknown Urine Color Yellow Urine Clarity Clear Urine pH 5.5 Urine Specific [place] 1.020 Urine Protein Negative mg/dL (NEG-TRACE) Urine Glucose (UA) 500 mg/dL (NEG) Urine Ketones (Stick) 15 mg/dL (NEG) Urine Blood Negative (NEG) Urine Nitrite Negative (NEG) Urine Bilirubin Negative (NEG) Urine Urobilinogen Dipstick 0.2 mg/dL (0.2 mg/dL) Urine Leukocyte Esterase Negative (NEG) Urine RBC Rare /HPF (0-2) Urine WBC 1-4 /HPF (0-4) Urine Squamous Epithelial Cells Few /LPF Urine Bacteria 0 /HPF (0-FEW) Urine Mucus Slight /LPF Glucose (Fingerstick) 253 mg/dL (70-99) 198 mg/dL (70-99) 189 mg/dL (70-99) Test 10/08/18 07:28 Glucose (Fingerstick) 291 mg/dL (70-99) Laboratory Tests Test 10/07/18 11:37 10/07/18 16:13 10/07/18 19:32 10/08/18 07:28 Glucose (Fingerstick) 253 mg/dL (70-99) 198 mg/dL (70-99) 189 mg/dL (70-99) 291 mg/dL (70-99) Brief Hospital Course Ms. Lopes is a 63 old female who speaks fluent Syri[place], admitted because of polydipsia polyphagia and was found have a blood sugar greater than 600s. Diagnosed with HO NK with no coma. No UTI but had glucosuria on UA. I am needing to start some insulin regimen-this is all new diagnosis for her She will be on 20 units 3 times a day mealtimes and 25 or 35 units Levemir daily at bedtime. Please refer to MAR Diabetes education done Discharge time 35 minutes greater than 60% DC education insulin education etc. Consults performed none Procedures performed none Hemoglobin A1c pending on discharge-but it was 6. something a few years back. She has been having symptoms of high blood sugar for at least maybe 5 years now She has a pcp that she will ff up with She is comfortable injecting herself Discharge Information Condition at Discharge: Improved, Stable Follow Up: Weeks (4 weeks PCP) Disposition/Orders: D/C to Home Scheduled Insulin Glargine,Hum.rec.anlog (Lantus Solostar) 100 Unit/1 Ml Insuln.pen, 35 UNITS SQ QHS for dm 2 for 30 Days Prescribed by: LUIS ANTONIO MAHARAJ on 10/08/18843 Insulin Lispro (Humalog) 100 Unit/1 Ml Insuln.pen, 20 UNITS SQ TIDWMEALS for dm 2 MDD 1 for 30 Days Prescribed by: LUIS ANTONIO MAHARAJ on 10/08/18 08 Lisinopril/Hydrochlorothiazide (Lisinopril-Hctz 20-25 Mg Tab) 1 Each Tablet, 1 TAB PO DAILY for htn MDD 1, #90 Ref 0 Prescribed by: LUIS ANTONIO MAHARAJ on 10/08/18 08 Discontinued Medications Cetirizine Hcl (Zyrtec) 10 Mg Tablet, 10 MG PO PRN, (Reported) Entered as Reported by: KARLOS VELA on 11/24/13 1246 Last Action: Discontinued on 10/05/182219 by JANY JOE Hydrocodone Bit/Acetaminophen (Hydrocodone-Apap 5-325 ) 1 Each Tablet, 1 TAB PO PRN Q6HRS PRN for PAIN, Ref 0 (Reported) Entered as Reported by: KARLOS VELA on 11/24/13 1246 Last Action: Discontinued on 10/05/182219 by JANY JOE Ibuprofen (Ibuprofen) 200 Mg Tablet, 400 MG PO PRN, (Reported) Entered as Reported by: KARLOS VELA on 11/24/13 1251 Last Action: Discontinued on 10/05/182219 by JANY JOE Meclizine Hcl (Meclizine Hcl) 12.5 Mg Tablet, 12.5 MG PO PRN for DIZZINESS, (Reported) Entered as Reported by: KARLOS VELA on 11/24/13 1248 Last Action: Discontinued on 10/05/182219 by JANY JOE Simvastatin (Simvastatin) 40 Mg Tablet, 40 MG PO HS for FOR CHOLESTEROL, #30 Ref 0 (Reported) Entered as Reported by: KARLOS VELA on 11/24/13 1245 Last Action: Discontinued on 10/05/182219 by LUIS ANTONIO ZAPATA MD Oct 08, 2018 11:20
[2018-10-08 13:15] LABS: HEMOGLOBIN A1C 13.5 % (4.8-5.6)
[2018-10-08 15:00] VITALS: BP 127/57
[2018-10-08] MEDS ORDERED: INSULIN LISPRO 300 UNITS/3 ML INSULN.PEN. SQ ONE (15:45)
--- NOTE | 2018-10-08 18:29 | NUR ---
Discharge Note: MAHNAZ REYNAGA Discharge instructions and discharge home medications reviewed with Patient and a copy given. All questions have been answered and understanding verbalized. The following instructions and handouts were given: education information for diabetes, medication education, Discontinued lines and drains: peripheral IV, tip intact. Patient discharged to home with self care via private vehicle. Patient left unit awake, in stable condition, with all personal belongings.
[2018-10-08] MEDS ORDERED: INSULIN GLARGINE 300 UNITS/3 ML INSULN.PEN. SQ SCH (21:00)
== END 2018-10-08 17:26 | disposition home or self-care (01) | DRG 637 ==
LOC: ER 16:14 → 1 WEST ICU 18:05 → 5 NORTH 10-06 16:49
PROVIDERS: ADMIT Internal Medicine; ATTEND Internal Medicine
DX: E11.00 Type 2 diabetes mellitus with hyperosmolarity without nonketotic hyperglycemic-hyperosmolar coma (NKHHC) (principal); N17.0 Acute kidney failure with tubular necrosis; Z68.42 Body mass index [BMI] 45.0-49.9, adult; E66.01 Morbid (severe) obesity due to excess calories; I10 Essential (primary) hypertension; Z83.3 Family history of diabetes mellitus
CPT/HCPCS: 36415; 80048; 80053; 81001; 82010; 82550; 82803; 82947; 82962; 83036; 83735; 83880; 84075; 84439; 84443; 85025; 87641; 93005; 96361; 96365; 96375; J0696; J1815; J3480; J7030; J7042; 99291-25

== ENCOUNTER → 2018-11-28 | Outpatient (CLI) | payer OTHER ==
[~2018-11-28] MED LIST changes: +INSU100I11 SQ; +INSU100I13 SQ
[2018-11-28 13:37] LABS: BILIRUBIN,URINE NEGATIVE (NEG); CLARITY,URINE CLEAR; COLOR,URINE YELLOW; NITRITE,URINE NEGATIVE (NEG); PROTEIN,URINE NEGATIVE (NEG-TRACE); UROBILINOGEN,URINE 0.2 mg/dL (0.2 mg/dL)
[2018-11-28 13:52] LABS: BACTERIA,URINE 0 /HPF (0-FEW); RBC,URINE OCC /HPF (0-2); SQUAMOUS EPITHELIAL CELL,UR FEW /LPF
== END | disposition home or self-care (01) ==
LOC: LAB 13:07
PROVIDERS: ATTEND Nurse Practitioner
DX: N39.0 Urinary tract infection, site not specified (principal)
CPT/HCPCS: 81001; 87086

== ENCOUNTER → 2019-06-19 | Outpatient (CLI) | payer OTHER ==
[~2019-06-19] MED LIST changes: -CETI10TA22 PO; +CETI10TA24 PO; +LISI1TAB20 PO; -LISI1TAB7 PO; -MECL12.52 PO; +MECL12.573 PO; +SIMV40TA18 PO; -SIMV40TA3 PO
[2019-06-19 09:55] LABS: BASO # 0.1 x10^3/uL (0.0-0.2); BASO % 1 % (0-3); EOS # 0.1 x10^3/uL (0.0-0.7); EOS % 2 % (0-3); HEMATOCRIT 38.2 % (36.0-47.0); HEMOGLOBIN 12.9 g/dL (12.0-15.5); LYMPH # 2.4 x10^3/uL (1.0-4.8); LYMPH % 32 % (24-48); MEAN CORPUSCULAR HEMOGLOBIN 29 pg (25-35); MEAN CORPUSCULAR HGB CONC 34 g/dL (31-37); MEAN CORPUSCULAR VOLUME 87 fL (79-100); MONO # 0.5 x10^3/uL (0.0-1.1); MONO % 6 % (0-9); NEUT # 4.3 x10^3/uL (1.8-7.7); NEUT % 59 % (31-73); PLATELET COUNT 198 x10^3/uL (140-400); RED CELL DISTRIBUTION WIDTH 12.8 % (11.5-14.5); WHITE BLOOD COUNT 7.4 x10^3/uL (4.0-11.0)
[2019-06-19 10:16] LABS: CALCIUM 9.1 mg/dL (8.5-10.1); CREATININE 0.7 mg/dL (0.6-1.0); GFR 84.2; POTASSIUM 3.6 mmol/L (3.5-5.1); TOTAL BILIRUBIN 0.4 mg/dL (0.2-1.0); TOTAL PROTEIN 8.1 g/dL (6.4-8.2)
[2019-06-19 10:19] LABS: CHOLESTEROL/HDL RATIO 3.9
[2019-06-19 10:26] LABS: BILIRUBIN,URINE NEGATIVE (NEG); CLARITY,URINE CLEAR; COLOR,URINE YELLOW; NITRITE,URINE NEGATIVE (NEG); PROTEIN,URINE NEGATIVE (NEG-TRACE); UROBILINOGEN,URINE 0.2 mg/dL (0.2 mg/dL)
[2019-06-19 10:54] LABS: BACTERIA,URINE FEW /HPF (0-FEW); SQUAMOUS EPITHELIAL CELL,UR FEW /LPF
== END | disposition home or self-care (01) ==
LOC: LAB 09:17
PROVIDERS: ATTEND Family Medicine
DX: E55.9 Vitamin D deficiency, unspecified (principal); E78.49 Other hyperlipidemia; I10 Essential (primary) hypertension; R35.0 Frequency of micturition
CPT/HCPCS: 36415; 80053; 80061; 81001; 82043; 82306; 84443; 85025; 87086

== ENCOUNTER → 2019-08-01 | Outpatient (CLI) | payer OTHER ==
[2019-08-01 13:00] LABS: CHOLESTEROL/HDL RATIO 2.6
[2019-08-01 13:08] LABS: FREE T4 1.13 ng/dL (0.76-1.46); THYROID STIM HORMONE (TSH) 2.02 uIU/mL (0.358-3.74)
== END | disposition home or self-care (01) ==
LOC: LAB 12:09
PROVIDERS: ATTEND Family Medicine
DX: E78.2 Mixed hyperlipidemia (principal); R79.89 Other specified abnormal findings of blood chemistry
CPT/HCPCS: 36415; 80061; 84439; 84443; 84450; 84460; 84480

== ENCOUNTER → 2019-10-30 | Outpatient (CLI) | payer OTHER ==
[~2019-10-30] MED LIST changes: +AMLO5TAB10 PO; +ATOR10TA60 PO; +LORA10CA PO; +METF-658 PO
== END | disposition home or self-care (01) ==
LOC: LAB 12:10
PROVIDERS: ATTEND Internal Medicine Gastroenterology
DX: Z11.59 Encounter for screening for other viral diseases (principal)
CPT/HCPCS: U0003-CS

== ENCOUNTER → 2019-11-02 | Day surgery (SDC) | payer OTHER ==
[~2019-11-02] MED LIST changes: +HYDROmorphone 2 MG/ML VIAL IV PRN; +IV RINGERS,LACTATED 1000ML 1,000 ML IV SCH; +MORPHINE SULFATE 2 MG/ML VIAL. IV PRN; +ONDANSETRON PF 4 MG/2 ML VIAL. IV PRN; +PROCHLORPERAZINE 10 MG/2 ML VIAL. IV PRN; +PROPOFOL 10 MG/ML (20ML) VIAL. IV ONE; +fentaNYL PF VIAL 100 MCG/2 ML VIAL IV PRN
[2019-11-02 13:03] VITALS: BP 111/62
== END ==
LOC: ENDOS 11:05
PROVIDERS: ATTEND Internal Medicine Gastroenterology
DX: Z12.11 Encounter for screening for malignant neoplasm of colon (principal); K57.30 Diverticulosis of large intestine without perforation or abscess without bleeding; K64.0 First degree hemorrhoids; I10 Essential (primary) hypertension; E11.9 Type 2 diabetes mellitus without complications; Z86.010 Personal history of colon polyps; Z83.71 Family history of colonic polyps; Z79.84 Long term (current) use of oral hypoglycemic drugs; Z90.710 Acquired absence of both cervix and uterus; Z98.890 Other specified postprocedural states
CPT/HCPCS: 45378; J2704

== ENCOUNTER → 2019-12-13 | Outpatient (CLI) | payer OTHER ==
[2019-11-02 13:03] VITALS: BP 111/62
[~2019-12-13] MED LIST changes: -HYDROmorphone 2 MG/ML VIAL IV PRN; -IV RINGERS,LACTATED 1000ML 1,000 ML IV SCH; -MORPHINE SULFATE 2 MG/ML VIAL. IV PRN; -ONDANSETRON PF 4 MG/2 ML VIAL. IV PRN; -PROCHLORPERAZINE 10 MG/2 ML VIAL. IV PRN; -PROPOFOL 10 MG/ML (20ML) VIAL. IV ONE; -fentaNYL PF VIAL 100 MCG/2 ML VIAL IV PRN
== END | disposition home or self-care (01) ==
LOC: SPEC 08:56
PROVIDERS: ATTEND Nurse Practitioner
DX: R30.0 Dysuria (principal)
CPT/HCPCS: 87086

== ENCOUNTER → 2020-02-13 | Outpatient (CLI) | payer OTHER ==
[2019-11-02 13:03] VITALS: BP 111/62
[~2020-02-13] MED LIST changes: +AMLO-186 PO; -AMLO5TAB10 PO; -CETI10TA24 PO; +CETI10TA74 PO
[2020-02-13 13:05] LABS: BASO % 1 % (0-3); EOS # 0.1 x10^3/uL (0.0-0.7); EOS % 2 % (0-3); HEMATOCRIT 35.2 % (36.0-47.0); LYMPH # 1.6 x10^3/uL (1.0-4.8); LYMPH % 27 % (24-48); MEAN CORPUSCULAR HEMOGLOBIN 29 pg (25-35); MEAN CORPUSCULAR HGB CONC 34 g/dL (31-37); MEAN CORPUSCULAR VOLUME 87 fL (79-100); MONO # 0.5 x10^3/uL (0.0-1.1); MONO % 8 % (0-9); NEUT # 3.9 x10^3/uL (1.8-7.7); NEUT % 63 % (31-73); PLATELET COUNT 174 x10^3/uL (140-400); RED BLOOD COUNT 4.06 x10^6/uL (3.50-5.40); RED CELL DISTRIBUTION WIDTH 13.3 % (11.5-14.5); WHITE BLOOD COUNT 6.1 x10^3/uL (4.0-11.0)
[2020-02-13 13:22] LABS: ALBUMIN/GLOBULIN RATIO 1.1 (1.0-1.7); CALCIUM 9.4 mg/dL (8.5-10.1); CREATININE 0.7 mg/dL (0.6-1.0); GFR 84.2; POTASSIUM 3.6 mmol/L (3.5-5.1); TOTAL BILIRUBIN 0.4 mg/dL (0.2-1.0); TOTAL PROTEIN 7.7 g/dL (6.4-8.2)
[2020-02-14 01:09] LABS: HEMOGLOBIN A1C 5.3 % (4.8-5.6)
== END ==
LOC: LAB 12:26
PROVIDERS: ATTEND Family Medicine
DX: E55.9 Vitamin D deficiency, unspecified (principal)
CPT/HCPCS: 36415; 80053; 82306; 83036; 85025

== ENCOUNTER → 2020-08-01 | Outpatient (CLI) | payer OTHER ==
[2019-11-02 13:03] VITALS: BP 111/62
[~2020-08-01] MED LIST changes: -MECL12.573 PO; +MECL12.582 PO
--- NOTE | 2020-08-01 09:40 | RAD ---
PROCEDURE: MG BILAT SCREEN+KIERAN HISTORY: The patient is 65 years old and is seen for Reason: SCREENING / Spl. Instructions: / Histor y: . COMPARISON: June 17, 2018. TECHNIQUE: CC and MLO views of both breasts were obtained. Images were processed by the [employer] computer-aided detection system. DENSITY: There are scattered fibroglandular densities. FINDINGS: No developing mass, suspicious calcifications or architectural distortion. IMPRESSION: Negative. No evidence of malignancy. Recommend annual screening mammograms per [place] [employer] guidelines. She will be due in one year. BI-RADS category 1 Negative Patient entered into a reminder system for annual screening mammogram. Electronically signed by: Mike Dunn DO (08/01/2020 9:37 AM) [id number]
== END ==
LOC: MAMMO 09:20
PROVIDERS: ATTEND Family Medicine
DX: Z12.31 Encounter for screening mammogram for malignant neoplasm of breast (principal)
CPT/HCPCS: 77063; 77067